=== PATIENT | male | born 1980 | race Two or more races ===

== ENCOUNTER → 2020-01-18 | Outpatient (CLI) | payer OTHER ==
--- NOTE | 2020-01-18 10:45 | REP ---
INDICATION: CHILO INCREASED PERIRECTAL / HILAR NODULE DENSITY/FILE ROOM. COMPARISON: None an outside chest report suggests subtle nodular density in the right hilar region in a patient with 29 pack year smoking history. TECHNIQUE: Noncontrast chest CT with coronal and sagittal reconstructions. FINDINGS: There are no lung masses. There is no pleural effusion, pleural thickening, calcified pleural plaques or masses identified. The lung dawkins are well inflated. There is some minor dependent atelectatic change posteriorly in the right mid to lower lung zone. There is a 3 mm nodule in the right apex that is noncalcified and best seen on image 14. Heart size is not enlarged the aorta is without aneurysm there is some prominence of pulmonary arteries at the cricket without the perihilar nodules, infiltrate, mass, definite adenopathy or increased interstitial markings. Some sub cm normal-sized mediastinal nodes are present the all less than a cm. No axillary or supravalvular mass. Bone windows show the sternum, manubrium, medial clavicles, visualized portions of scapula, humeral heads and ribs all intact. Spine included was unremarkable. IMPRESSION: 1. No hilar or perihilar mass, nodule or infiltrate. No definite adenopathy. Exam be less sensitive for adenopathy with the absence of IV contrast but pulmonary arteries are prominent and account for the radiographic finding. 2. 3 mm noncalcified nodule left apex. No other significant finding. 3. Patient with significant smoking history, follow-up recommendation per the [employer] would be [address] examination. <Electronically signed by Lawrence Lambert > 01/18/20 [id number]
== END ==
LOC: M RAD 09:30
DX: R91.8 Other nonspecific abnormal finding of lung field (principal)